=== PATIENT | female | born 1945 | race Caucasian/White ===

== ENCOUNTER 2021-11-17 12:03 | Emergency (ER) | payer MEDICARE ==
[2021-11-17] MEDS ORDERED: NORCO 5-325 TA1 EACH PO (15:15)
== END 2021-11-17 15:30 | disposition home or self-care (01) ==
LOC: FER 12:03
DX: S42.202A Unspecified fracture of upper end of left humerus, initial encounter for closed fracture (principal); S00.83XA Contusion of other part of head, initial encounter; S01.511A Laceration without foreign body of lip, initial encounter; S80.212A Abrasion, left knee, initial encounter; S60.512A Abrasion of left hand, initial encounter; Z23 Encounter for immunization; Z88.5 Allergy status to narcotic agent; W01.0XXA Fall on same level from slipping, tripping and stumbling without subsequent striking against object, initial encounter; Y92.009 Unspecified place in unspecified non-institutional (private) residence as the place of occurrence of the external cause
CPT/HCPCS: 70450; 73030; 73080; 73130; 90471; 90715